=== PATIENT | male | born 1930 | race Caucasian/White ===

== ENCOUNTER 2018-11-29 10:56 | Emergency (ER) | payer MEDICARE ==
[~2018-11-29] VITALS: Ht 180.3 cm; Wt 66.0 kg
[~2018-11-29 10:56] MED LIST: ASPI-1265 PO; ATOR10TA PO; NO HOME MEDS
[2018-11-29] MEDS ORDERED: LIDOcaine 1% w/epiNEPHrine 1:200,000 30ml vial IM ONE (11:35)
[2018-11-29 13:05] VITALS: BP 124/86
== END 2018-11-29 13:06 | disposition home or self-care (01) ==
LOC: ER 10:57
DX: S01.01XA Laceration without foreign body of scalp, initial encounter (principal); Z90.49 Acquired absence of other specified parts of digestive tract; Z79.82 Long term (current) use of aspirin; Z79.899 Other long term (current) drug therapy; W11.XXXA Fall on and from ladder, initial encounter; Y93.89 Activity, other specified; Y92.89 Other specified places as the place of occurrence of the external cause; Y99.8 Other external cause status
CPT/HCPCS: 12001; 70450; 99284; J3490

== ENCOUNTER 2019-01-19 08:45 | Emergency (ER) | payer MEDICARE ==
[~2019-01-19] VITALS: Ht 180.3 cm; Wt 81.8 kg
[2019-01-19 08:54] VITALS: BP 121/73
[2019-01-19] MEDS ORDERED: TRAM50TA2 PO (09:05)
== END 2019-01-19 09:42 | disposition home or self-care (01) ==
LOC: ER 08:45
DX: S80.11XA Contusion of right lower leg, initial encounter (principal); Z79.899 Other long term (current) drug therapy; Z79.82 Long term (current) use of aspirin; Z85.46 Personal history of malignant neoplasm of prostate; Z90.49 Acquired absence of other specified parts of digestive tract; W22.8XXA Striking against or struck by other objects, initial encounter; Y93.89 Activity, other specified; Y92.89 Other specified places as the place of occurrence of the external cause; Y99.8 Other external cause status
CPT/HCPCS: 99284